=== PATIENT | female | born 1955 ===

== ENCOUNTER 2021-04-09 06:00 | Outpatient (RCR) | payer MEDICARE, MEDICAID, SELFPAY | END 2021-04-16 23:59 | disposition home or self-care (01) | LOC: MPT 06:00 | PROVIDERS: Visit Provider Family Medicine | DX: N30.10 Interstitial cystitis (chronic) without hematuria (principal); N32.81 Overactive bladder; N39.41 Urge incontinence | CPT/HCPCS: 97140; 97161; 97530 ==

== ENCOUNTER 2021-04-17 06:00 | Outpatient (RCR) | payer MEDICARE, MEDICAID, SELFPAY | END 2021-05-17 23:59 | disposition home or self-care (01) | LOC: MPT 06:00 | PROVIDERS: Visit Provider Family Medicine | DX: N30.10 Interstitial cystitis (chronic) without hematuria (principal); N32.81 Overactive bladder; N39.41 Urge incontinence | CPT/HCPCS: 97110; 97140; 97530 ==

== ENCOUNTER 2021-05-18 06:00 | Outpatient (RCR) | payer MEDICARE, MEDICAID, SELFPAY | END 2021-06-17 23:59 | disposition home or self-care (01) | LOC: MPT 06:00 | PROVIDERS: Visit Provider Family Medicine | DX: N30.10 Interstitial cystitis (chronic) without hematuria (principal); N32.81 Overactive bladder; N39.41 Urge incontinence | CPT/HCPCS: 97140; 97530 ==

== ENCOUNTER 2021-06-18 06:00 | Outpatient (RCR) | payer MEDICARE, MEDICAID, SELFPAY | END 2021-07-15 23:59 | disposition home or self-care (01) | LOC: MPT 06:00 | PROVIDERS: Visit Provider Family Medicine | DX: N30.10 Interstitial cystitis (chronic) without hematuria (principal); N32.81 Overactive bladder; N39.41 Urge incontinence | CPT/HCPCS: 97140; 97530 ==

== ENCOUNTER 2021-07-16 06:00 | Outpatient (RCR) | payer MEDICARE, MEDICAID, SELFPAY | END 2021-08-15 23:59 | disposition home or self-care (01) | LOC: MPT 06:00 | PROVIDERS: Visit Provider Family Medicine | DX: N30.10 Interstitial cystitis (chronic) without hematuria (principal); N32.81 Overactive bladder; N39.41 Urge incontinence | CPT/HCPCS: 97140; 97530 ==

== ENCOUNTER 2021-08-16 06:00 | Outpatient (RCR) | payer MEDICARE, MEDICAID, SELFPAY | END 2021-08-23 23:59 | disposition home or self-care (01) | LOC: MPT 06:00 | PROVIDERS: Visit Provider Family Medicine | DX: N30.10 Interstitial cystitis (chronic) without hematuria (principal); N39.41 Urge incontinence | CPT/HCPCS: 97140; 97530 ==